=== PATIENT | female | born 2000 | race Hispanic/Latino ===

== ENCOUNTER 2023-05-15 13:49 | Emergency (ER) | payer OTHER, SELFPAY ==
[2023-05-15 13:59] VITALS: BP 131/79; PULSE 99; RESP 19; TEMP 36.9; O2SAT 98; BMI 34.7
--- NOTE | 2023-05-15 14:01 | ED.URI ---
HPI - URI/Sore Throat <EZRA Javier - Last Filed: 05/15/23 15:24> General Chief Complaint: Upper Respiratory Symptoms Stated Complaint: SOB, Sore throat, fatigue, body aches Time Seen by Provider: 05/15/23 14:00 History of Present Illness HPI Narrative: This is a 22-year-old female presents to the emergency department complaining fatigue, body aches, sore throat, cough and congestion, states that she just got off of a boat today and was exposed to COVID while on the boat, also endorses frequent urinary tract infections. Denies chance of , endorses chills with mild fever. Denies shortness of breath or wheezing, she is a former smoker, denies known contacts with strep throat, denies significant throat. Denies history of any allergies. Denies vomiting or diarrhea. Related Data Previous Rx's Medication Instructions Recorded cetirizine 10 mg tablet 10 mg PO BEDTIME PRN allergy 05/15/23 symptoms #30 tabs metronidazole 500 mg tablet 500 mg PO BID 10 days #20 tabs 05/15/23 phenazopyridine 200 mg tablet 200 mg PO QPC #7 tabs 05/15/23 (Pyridium) Allergies Allergy/AdvReac Type Severity Reaction Status Date / Time No Known Drug Allergies Allergy Verified 05/15/23 13:59 Review of Systems <EZRA Javier - Last Filed: 05/15/23 15:24> Review of Systems ROS Unobtainable: All systems reviewed & are unremarkable except as noted in HPI and below Patient History <EZRA Javier - Last Filed: 05/15/23 15:24> Social History Smoking Status: Former smoker Exam <EZRA Javier - Last Filed: 05/15/23 15:24> Narrative Exam Narrative: Reviewed vitals signs and nursing notes. General: Pleasant, sitting upright, in no acute distress, well groomed, afebrile HEENT: symmetrical facial expressions, moist mucous membranes, neck is supple, posterior pharynx is mildly erythematous but no tonsillar adenopathy or exudate, patient has nasal congestion without sinus tenderness, flushed cheeks, diaphoresis CV: regular rate and rhythm, warm extremities Respiratory: normal work of breathing, without tachypnea or hypoxia. Breath sounds are clear throughout all [place] GI: abdomen soft, nondistended, without CVA tenderness bilaterally. MSK: moves all extremities, no weakness, normal tone, ambulatory without deficit Skin: brisk capillary refill, without rash or wound Neuro: clear speech and normal cognition, A&O x3, GCS 15, no focal motor or sensation deficits Initial Vital Signs Initial Vital Signs: Vital Signs Temperature 98.5 F 05/15/23 13:59 Pulse Rate 99 H 05/15/23 13:59 Respiratory Rate 19 05/15/23 13:59 Blood Pressure 131/79 05/15/23 13:59 Pulse Oximetry 98 05/15/23 13:59 Oxygen Delivery Method Room Air 05/15/23 13:59 <Susie Pittman DO - Last Filed: 05/15/23 15:48> Initial Vital Signs Initial Vital Signs: Vital Signs Temperature 98.5 F 05/15/23 13:59 Pulse Rate 99 H 05/15/23 13:59 Respiratory Rate 19 05/15/23 13:59 Blood Pressure 131/79 05/15/23 13:59 Pulse Oximetry 98 05/15/23 13:59 Oxygen Delivery Method Room Air 05/15/23 13:59 Course <EZRA Javier - Last Filed: 05/15/23 15:24> Orders Ordered: ED Orders 05/15/23 14:10 Covid-19 + FLU A/B + RSV - PCR Stat Strep Grp A by PCR Rapid Stat Throat Culture Stat 05/15/23 14:15 Ictotest Urine Stat Urine Microscopic Stat Discontinued Medications Acetaminophen (Acetaminophen 325 Mg Tablet) 975 mg PO NOW ONE Stop: 05/15/23 14:09 Last Admin: 05/15/23 14:15 Dose: 975 mg Documented By: RLS Ibuprofen (Ibuprofen 400 Mg Tablet) 600 mg PO NOW ONE Stop: 05/15/23 14:09 Last Admin: 05/15/23 14:15 Dose: 600 mg Documented By: RLS Metronidazole (Metronidazole 500 Mg Tablet) 500 mg PO NOW ONE Stop: 05/15/23 15:15 Last Admin: 05/15/23 15:27 Dose: 500 mg Documented By: KM Vital Signs Vital signs: Vital Signs - 8 hr 05/15/23 13:59 05/15/23 15:37 Temperature 98.5 F Pulse Rate 99 H 100 H Respiratory Rate 19 Blood Pressure 131/79 109/66 Pulse Oximetry 98 99 Oxygen Delivery Method Room Air Room Air <Susie Pittman DO - Last Filed: 05/15/23 15:48> Orders Ordered: ED Orders 05/15/23 14:10 Covid-19 + FLU A/B + RSV - PCR Stat Strep Grp A by PCR Rapid Stat Throat Culture Stat 05/15/23 14:15 Ictotest Urine Stat Urine Microscopic Stat Discontinued Medications Acetaminophen (Acetaminophen 325 Mg Tablet) 975 mg PO NOW ONE Stop: 05/15/23 14:09 Last Admin: 05/15/23 14:15 Dose: 975 mg Documented By: RLS Ibuprofen (Ibuprofen 400 Mg Tablet) 600 mg PO NOW ONE Stop: 05/15/23 14:09 Last Admin: 05/15/23 14:15 Dose: 600 mg Documented By: RLS Metronidazole (Metronidazole 500 Mg Tablet) 500 mg PO NOW ONE Stop: 05/15/23 15:15 Last Admin: 05/15/23 15:27 Dose: 500 mg Documented By: KM Vital Signs Vital signs: Vital Signs - 8 hr 05/15/23 13:59 05/15/23 15:37 Temperature 98.5 F Pulse Rate 99 H 100 H Respiratory Rate 19 Blood Pressure 131/79 109/66 Pulse Oximetry 98 99 Oxygen Delivery Method Room Air Room Air MDM - URI/Sore Throat <SANDOVAL JavierP - Last Filed: 05/15/23 15:24> Lab Data Labs: Lab Results 05/15/23 05/15/23 05/15/23 Range/Units 14:10 14:10 14:15 Ur Bilirubin Confirm (Negative) Urine RBC None seen (0-5/HPF) Urine WBC 1-5/hpf (0-5/HPF) Ur Squamous Epith Cells Many (0-5/HPF) Urine Bacteria Many (>30) H (None) Ur Culture Indicated? Cult not indicated SARS-CoV-2 (PCR) Positive H (Negative) Influenza A (RT-PCR) Flu a negative (NEGATIVE) Influenza B (RT-PCR) Flu b negative (NEGATIVE) RSV (PCR) Negative (Negative) Group A Strep (PCR) Negative (Negative) 05/15/23 Range/Units 14:15 Ur Bilirubin Confirm Negative (Negative) Urine RBC (0-5/HPF) Urine WBC (0-5/HPF) Ur Squamous Epith Cells (0-5/HPF) Urine Bacteria (None) Ur Culture Indicated? SARS-CoV-2 (PCR) (Negative) Influenza A (RT-PCR) (NEGATIVE) Influenza B (RT-PCR) (NEGATIVE) RSV (PCR) (Negative) Group A Strep (PCR) (Negative) Point of Care Testing Test Results Negative Urine Dip Bedside Urine Glucose Negative Bedside Urine Bilirubin + 1 Bedside Urine Ketone - Negative Urine Specific [place] 1.015 Bedside Urine Occult Blood - Negative Bedside Urine pH 6.0 Bedside Urine Protein +/- 15 Bedside Urine Urobilinogen - Negative Bedside Urine Nitrite - Negative Bedside Urine Leukocytes ++ 125 Esterase MDM Narrative Medical decision making narrative: Chief Complaint: Upper respiratory illness, dysuria Primary historian: Patient Multiple etiologies for patient's complaint considered including, but not limited to: Urinary tract infection, vaginitis, upper respiratory viral infection, pneumonia, pneumonitis, bronchitis seasonal allergies, strep throat Respiratory PCR is positive for COVID-19, rapid strep that is negative, throat culture pending, UA with many bacteria and many epithelial cells, this is likely from her vaginal discharge, states that she is been having abnormal vaginal discharge for a few weeks. I suspect this most likely bacterial vaginosis, patient was unable to leave a self swab as she had been waiting in the waiting room and wishes to have treatment instead of wait for testing at this point. She is encouraged to stay hydrated, use Tylenol, ibuprofen, Zyrtec, and Mucinex as needed for her symptoms. She was given Pyridium for her urinary tract discomfort and not given any antibiotics for UTI. She does not have bilateral CVA tenderness. Since patient's symptoms have been ongoing for more than 5 days, she is not have immunosuppression or is high-risk for COVID illness so no antiviral treatment was initiated. I have independently reviewed the patient's vital signs and nursing notes as well as prior records if available. Social considerations that may affect disposition: none Questions are addressed and there is agreement with the plan and for follow-up. I consulted with the ED attending physician Dr. Pittman as needed for higher level of care considerations and they were available for discussion and recommendations regarding plan of care and diagnostic testing. Patient is appropriate for outpatient management. <Susie Pittman, DO - Last Filed: 05/15/23 15:48> Lab Data Labs: Lab Results 05/15/23 05/15/23 05/15/23 Range/Units 14:10 14:10 14:15 Ur Bilirubin Confirm (Negative) Urine RBC None seen (0-5/HPF) Urine WBC 1-5/hpf (0-5/HPF) Ur Squamous Epith Cells Many (0-5/HPF) Urine Bacteria Many (>30) H (None) Ur Culture Indicated? Cult not indicated SARS-CoV-2 (PCR) Positive H (Negative) Influenza A (RT-PCR) Flu a negative (NEGATIVE) Influenza B (RT-PCR) Flu b negative (NEGATIVE) RSV (PCR) Negative (Negative) Group A Strep (PCR) Negative (Negative) 05/15/23 Range/Units 14:15 Ur Bilirubin Confirm Negative (Negative) Urine RBC (0-5/HPF) Urine WBC (0-5/HPF) Ur Squamous Epith Cells (0-5/HPF) Urine Bacteria (None) Ur Culture Indicated? SARS-CoV-2 (PCR) (Negative) Influenza A (RT-PCR) (NEGATIVE) Influenza B (RT-PCR) (NEGATIVE) RSV (PCR) (Negative) Group A Strep (PCR) (Negative) Point of Care Testing Test Results Negative Urine Dip Bedside Urine Glucose Negative Bedside Urine Bilirubin + 1 Bedside Urine Ketone - Negative Urine Specific [place] 1.015 Bedside Urine Occult Blood - Negative Bedside Urine pH 6.0 Bedside Urine Protein +/- 15 Bedside Urine Urobilinogen - Negative Bedside Urine Nitrite - Negative Bedside Urine Leukocytes ++ 125 Esterase Discharge Plan Departure Patient Disposition: Home Clinical Impression: COVID-19, Bacterial vaginitis Upper respiratory infection Qualifiers: URI type: unspecified viral URI Qualified Code(s): J06.9 - Acute upper respiratory infection, unspecified Instructions: Bacterial Vaginosis, DI for Viral Upper Respiratory Infection -- Adult, COVID-19 Activity Restrictions/Additional Instructions: *You have been diagnosed with Covid, and initially thought to be a UTI, there was bacteria from your vaginal discharge in your urine that showed bacteria and this is likely related to bacterial vaginosis. No other viruses tested positive, your rapid strep screen was negative. There no good treatment for COVID other than managing her symptoms. Please use ibuprofen and Tylenol every 6 hours with plenty of hydration to treat your aches and pains. Please take Flagyl twice a day for the next 10 days to treat the bacteria and use Pyridium as needed for painful urination. If you develop more symptoms, please have evaluation at the closest clinic or hospital you come in contact with. Please remain masked since you are COVID positive and take Zyrtec each night for congestion, ear pain, and Mucinex for productive cough. Hope you feel better soon *What to do: *Please continue to take your regular medications as directed. [x ] New medication prescriptions sent to your pharmacy: [ [facility]] [ ] New medication written as a paper prescription [ ] No new medications given *Please call and schedule follow up with your primary care provider in 2-3 days, at least for an update. Let them know you were seen in the Emergency Department for the above problem. We will electronically transmit a record of today's note if your PCP or specialist is in our system. *If you do not have a primary care provider please contact [phone] to establish care with one of the [facility] primary care providers. *Return to the Emergency Department for worsening symptoms, inability to keep liquids down, fever greater than 101F, chills, or other concerning symptom. Prescriptions: New cetirizine 10 mg tablet 10 mg PO BEDTIME PRN (Reason: allergy symptoms) Qty: 30 0RF phenazopyridine [Pyridium] 200 mg tablet 200 mg PO QPC Qty: 7 0RF metronidazole 500 mg tablet 500 mg PO BID 10 Days Qty: 20 0RF Stand Alone Forms: Patient Portal/API, Work Release Note <Susie Pittman, - Last Filed: 05/15/23 15:48> [facility] ED Attending Williamsature Attestation: I was immediately available in the department for consultation. Documentation has been reviewed.
[2023-05-15] MEDS: ACETAMINOPHEN 325 MG TABLET 975 MG PO (14:15)
[2023-05-15] MEDS: IBUPROFEN 400 MG TABLET 600 MG PO (14:15)
[2023-05-15 14:37] LABS: Strep Grp A by PCR Rapid Negative (Negative)
[2023-05-15 14:57] LABS: RBC Urine None Seen (0-5/HPF)
[2023-05-15 14:59] LABS: Bacteria Urine Many (>30); Culture Indicated Urine Cult Not Indicated; Squamous Epithelial Cell Urine MANY (0-5/HPF); WBC Urine 1-5/HPF (0-5/HPF)
[2023-05-15 15:02] LABS: Ictotest Urine Negative (Negative)
[2023-05-15 15:09] LABS: Influenza A - CEPHEID Flu A NEGATIVE (NEGATIVE); Influenza B - CEPHEID Flu B NEGATIVE (NEGATIVE); Respiratory Syncytial Virus Negative (Negative)
[2023-05-15 15:16] LABS: COVID-19 CEPHEID 4-PLEX PCR POSITIVE (Negative)
[2023-05-15] MEDS: metroNIDAZOLE 500 MG TABLET PO (15:27)
[2023-05-15 15:37] VITALS: BP 109/66; PULSE 100; O2SAT 99
== END 2023-05-15 15:37 | disposition home or self-care (01) ==
PROVIDERS: Emergency Provider Nurse Practitioner Critical Care Medicine
DX: U07.1 COVID-19 (principal); J06.9 Acute upper respiratory infection, unspecified; N76.0 Acute vaginitis; Z87.891 Personal history of nicotine dependence
CPT/HCPCS: 0241U; 81003; 81015; 81025; 87070; 87651; 99283